=== PATIENT | male | born 1965 ===

== ENCOUNTER 2016-11-24 08:45 | Day surgery (SDC) | payer OTHER ==
[~2016-11-24 08:45] MED LIST: Cefuroxime 10 MG/ML SYRINGE EYELF SCH; Lidocaine 1% PF 2 ML SDV INJECT SCH; Pilocarpine 4% Ophth Soln 15 ML Bot EYELF SCH; Proparacaine 0.5% Ophth Soln 15 ML Bottle EYEBOTH SCH; Tetracaine 0.5% 2 ML Bottle EYELF SCH
[2016-11-24] MEDS: Polymyxin B/Trimethoprim 10 ML Bottle EYELF SCH ×3 (09:44→11:16)
[2016-11-24] MEDS: Apraclonidine 0.5% Ophth Soln 5 ML Bot EYELF SCH ×3 (09:48→11:16)
[2016-11-24] MEDS: Phenylephrine 2.5% Ophth Soln 2 ML Bot EYELF SCH ×5 (09:53→10:51)
--- NOTE | 2016-11-24 10:18 | PCM.PREANE ---
Preanesthetic Assessment - Anesthesia/Transfusion/Family Hx Anesthesia History: Prior Anesthesia Without Reaction Family History of Anesthesia Reaction: No Transfusion History: No Prior Transfusion(s) - Review of Systems General: No Symptoms Pulmonary: No Symptoms Cardiovascular: No Symptoms Gastrointestinal: No symptoms Neurological: No Symptoms Other: Reports: None - Physical Assessment NPO Status Date: 11/23/16 NPO Status Time: 18:00 O2 Sat by Pulse Oximetry: 97 Respiratory Rate: 16 Vital Signs: Last Vital Signs Temp 36.6 C 11/24/16 09:20 Pulse 76 11/24/16 09:20 Resp 16 11/24/16 09:20 BP 147/91 H 11/24/16 09:20 Pulse Ox 97 11/24/16 09:20 Height: 1.78 m Weight: 66.224 kg ASA Class: 2 Mental Status: Alert & Oriented x3 Airway Class: Mallampati = 3 Dentition: Reports: Normal Dentition Thyro-Mental Finger Breadths: 3 Mouth Opening Finger Breadths: 5 ROM/Head Extension: Full Lungs: Clear to auscultation, Normal respiratory effort Cardiovascular: Regular Rate, Regular Rhythm - Allergies Allergies/Adverse Reactions: Allergies Allergy/AdvReac Type Severity Reaction Status Date / Time No Known Allergies Allergy Verified 11/23/16 08:07 - Acknowledgements Anesthesia Type Planned: MAC Pt an Appropriate Candidate for the Planned Anesthesia: Yes Alternatives and Risks of Anesthesia Discussed w Pt/Guardian: Yes Pt/Guardian Understands and Agrees with Anesthesia Plan: Yes PreAnesthesia Questionnaire HEENT History: Reports: None Cardiovascular History: Reports: None Respiratory History: Reports: None Gastrointestinal History: Reports: None Genitourinary History: Reports: None Musculoskeletal History: Reports: None Neurological History: Reports: None Psychiatric History: Reports: None Endocrine/Metabolic History: Reports: None Hematologic History: Reports: None Immunologic History: Reports: None Oncologic (Cancer) History: Reports: None Dermatologic History: Reports: None - Infectious Disease History Infectious Disease History: Reports: None - Past Surgical History GI Surgical History: Reports: Hernia repair/other - SUBSTANCE USE Smoking Status *Q: Former Smoker Tobacco Use Within Last Twelve Months: No Days Per Week of Alcohol Use: 5 Number of Drinks Per Day: 5 Total Drinks Per Week: 25 Recreational Drug Use History: No - CURRENT (IN HOUSE) MEDS Current Meds: Current Medications Apraclonidine HCl (Iopidine 0.5% Ophth Soln) 0 ml EYELF ASDIRECTED KEVIN Stop: 11/24/16 18:00 Last Admin: 11/24/16 09:48 Dose: 1 drop Cefuroxime Sodium (Zinacef) 0 mg EYELF ASDIRECTED KEVIN Stop: 11/24/16 18:00 Lidocaine HCl (Xylocaine-Mpf 1%) 2 ml INJECT ASDIRECTED KEVIN Stop: 11/24/16 18:00 Phenylephrine HCl (Jimmie-Synephrine 2.5% Ophth Soln) 0 ml EYELF ASDIRECTED KEVIN Stop: 11/24/16 18:00 Last Admin: 11/24/16 10:03 Dose: 1 drop Pilocarpine HCl (Pilocar 4% Ophth Soln) 0 ml EYELF ASDIRECTED KEVIN Stop: 11/24/16 18:00 Polymyxin/Trimethoprim Sulfate (Polytrim Ophth Soln) 0 ml EYELF ASDIRECTED KEVIN Stop: 11/24/16 18:00 Last Admin: 11/24/16 09:44 Dose: 1 drop Proparacaine HCl (Proparacaine 0.5% Ophth Soln) 0 ml EYEBOTH ASDIRECTED KEVIN Stop: 11/24/16 18:00 Tetracaine (Pontocaine 0.5% Ophth Drops) 0 ml EYELF ASDIRECTED KEVIN Stop: 11/24/16 18:00 Tropicamide (Mydriacyl 1% Ophth Soln) 0 ml EYELF ASDIRECTED KEVIN Stop: 11/24/16 18:00 Last Admin: 11/24/16 10:08 Dose: 1 drop Preanesthetic Assessment - PHYSICAL ASSESSMENT O2 Sat by Pulse Oximetry: 97 RR: 16 Vital Signs: Last Vital Signs Temp 36.6 C 11/24/16 09:20 Pulse 76 11/24/16 09:20 Resp 16 11/24/16 09:20 BP 147/91 H 11/24/16 09:20 Pulse Ox 97 11/24/16 09:20 Height: 1.78 m Weight: 66.224 kg NPO Status Date: 11/23/16 NPO Status Time: 18:00 - ALLERGIES Allergies/Adverse Reactions: Allergies Allergy/AdvReac Type Severity Reaction Status Date / Time No Known Allergies Allergy Verified 11/23/16 08:07
--- NOTE | 2016-11-24 11:25 | PCM48HPAN ---
Post Anesthesia Note - EVALUATION WITHIN 48HRS OF ANESTHETIC Vital Signs in Normal Range: Yes Patient Participated in Evaluation: Yes Respiratory Function Stable: Yes Airway Patent: Yes Cardiovascular Function Stable: Yes Hydration Status Stable: Yes Pain Control Satisfactory: Yes Nausea and Vomiting Control Satisfactory: Yes Mental Status Recovered: Yes
[2016-11-24 11:30] VITALS: BP 142/85
== END 2016-11-24 11:28 | disposition home or self-care (01) ==
LOC: JD.SDS 08:45
PROVIDERS: ATTEND Ophthalmology
DX: H26.9 Unspecified cataract (principal)
CPT/HCPCS: 66984; A9270; C1780; J0697